=== PATIENT | female | born 1990 | race Asian ===

== ENCOUNTER 2024-02-20 10:18 | Emergency (ER) | payer OTHER ==
[2024-02-20] MEDS: traMADol 50 MG Tab PO ONE (11:42)
== END 2024-02-20 12:20 | disposition home or self-care (01) ==
LOC: MW.ED 10:18
DX: S90.32XA Contusion of left foot, initial encounter (principal); Z75.8 Other problems related to medical facilities and other health care; W19.XXXA Unspecified fall, initial encounter
CPT/HCPCS: 73620; 99283; A9270